=== PATIENT | female | born 1995 | race Two or more races ===

== ENCOUNTER 2024-10-21 05:53 | Emergency (ER) | payer OTHER ==
[~2024-10-21] VITALS: Ht 162.6 cm; Wt 86.9 kg
--- NOTE | 2024-10-21 07:02 | ED.PDOC ---
History of Present Illness HPI Comments 29-year-old female with PMHx Asthma presents with a chief complaint of flu-like symptoms. Patient states that she has been experiencing mainly a cough that is non-productive and nasal congestion. Patient does mention a history of asthma and states that she has been having to use her inhaler more frequently because of the congestion and feeling like she cannot breathe properly. Patient is sating 99% on room air. 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 Hx Family History Family History: Reviewed,noncontributory to illness Social History Smoker: Non-Smoker Alcohol: Denies ETOH Use Drugs: Denies Drug Use Lives In: Home Constitutional: denies: chills, diaphoresis, fatigue, fever, malaise, sweats, weakness, others EENTM: reports: nose congestion; denies: blurred vision, double vision, ear bleeding, ear discharge, ear drainage, ear pain, ear ringing, eye pain, eye redness, hearing loss, mouth pain, mouth swelling, nasal discharge, nose bleeding, nose pain, photophobia, tearing, throat pain, throat swelling, voice changes, others Respiratory: reports: cough; denies: hemoptysis, orthopnea, SOB at rest, shortness of breath, SOB with excertion, stridor, wheezing, others Cardiovascular: denies: chest pain, dizzy spells, diaphoresis, Dyspnea on exertion, edema, irregular heart beat, left arm pain, lightheadedness, palpitations, PND, syncope, others Gastrointestinal: denies: abdomen distended, abdominal pain, blood streaked bowels, constipated, diarrhea, dysphagia, difficulty swallowing, hematemesis, melena, nausea, poor appetite, poor fluid intake, rectal bleeding, rectal pain, vomiting, others Genitourinary: denies: abnormal vagina bleeding, burning, dyspareunia, dysuria, flank pain, frequency, hematuria, incontinence, pain, , vagina discharge, urgency, others Neurological: denies: dizziness, fainting, headache, left sided numbness, left sided weakness, numbness, paresthesia, pre-existing deficit, right sided numbness, right sided weakness, seizure, speech problems, tingling, tremors, weakness, others Musculoskeletal: denies: back pain, gout, joint pain, joint swelling, muscle pain, muscle stiffness, neck pain, others Integumetry: denies: bruises, change in color, change in hair/nails, dryness, laceration, lesions, lumps, rash, wounds, others Allergic/Immunocompromised: denies: Difficulty Healing, Frequent Infections, Hives, Itching, others Hematologic/Lymphatic: denies: anemia, blood clots, easy bleeding, easy bruising, swollen glands, others Endocrine: denies: excessive hunger, excessive sweating, excessive thirst, excessive urination, flushing, intolerance to cold, intolerance to heat, unexpl ained weight gain, unexplained weight loss, others Psychiatric: denies: anxiety, bipolar disorder, depression, hopeless, panic disorder, schizophrenia, sleepless, suicidal, others All Other Systems: Reviewed and Negative Physical Exam General Appearance: No Apparent Distress, Normal HEENT: Normal ENT Inspection, Pharynx Normal, TMs Normal Neck: Full Range of Motion, Non-Tender, Normal, Normal Inspection Respiratory: Chest Non-Tender, Lungs Clear, No Accessory Muscle Use, No Respiratory Distress, Normal Breath Sounds Cardiovascular: No Edema, No JVD, No Murmur, No Gallop, Normal Peripheral Pulses, Regular Rate/Rhythm Breast Exam: Deferred Gastrointestinal: No Organomegaly, Non Tender, No Pulsatile Mass, Normal Bowel Sounds, Soft Genitalia: Deferred Pelvic: Deferred Rectal: Deferred Extremities: No calf tenderness, Normal capillary refill, Normal inspection, Normal range of motion, Non-tender, No pedal edema Musculoskeletal : Apperance: Normal Neurologic: Alert, 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 Was a procedure done?: No Differential Dx Considerations may include: viral uri, bronchitis, pneumonia, asthma exacerbation X-Ray, Labs, Meds, VS Vital Signs Date Time Temp Pulse Resp B/P (MAP) Pulse Ox O2 Delivery O2 Flow Rate FiO2 10/21/24 07:19 94 18 97 Room Air 10/21/24 07:19 98.2 94 18 130/90 (103) 97 98.2 10/21/24 06:28 18 99 Room Air* 0 21 10/21/24 06:04 98.2 95 18 148/94 (112) 99 98.2 Time of 1ST Reevaluation: 06:51 Reevaluation 1ST: Unchanged Patient Education/Counseling: Diagnosis, Treatment, Prognosis, Need For Follow Up Family Education/Counseling: Diagnosis, Treatment, Prognosis, Need For Follow Up, No Family Present Additional Information Previous visit documents reviewed: None The following tests were ordered, and results were reviewed by me: Chest X-Ray I reviewed and agreed with the following test results read by other providers: Radiologist I discussed treatment and results with medical personnel and: Patient pt has viral uri, with mild asthma exacerbation. i will start her on prednisolone and she is to continue to use her inhaler. she is stable to follow up with her doctor Departure 1 Departure Time of Disposition: 08:48 Impression: Primary Impression: Asthma attack Qualified Codes: J45.21 - Mild intermittent asthma with (acute) exacerbation Additional Impression: Viral URI with cough Disposition: 01 HOME / SELF CARE / HOMELESS Condition: Good e-Prescriptions Prednisolone (Prednisolone) 15 Mg/5 Ml Gunnar 15 MG PO DAILY for 5 Days, #25 ML Prov: HOLLI MARS MD 10/21/24 Promethazine-Dm (Promethazine Dm 6.25-15 mg/5Ml) 1 Gunnar Gunnar 1 GUNNAR PO Q6HP PRN for 3 Days, #60 ML Prov: HOLLI MARS MD 10/21/24 Discharged With: Relative (Father) Critical Care Note Critical Care Time?: No Stability Stability form required: No Heart Score Heart Score: Heart Score Response (Comments) Value History N/A 0 EKG N/A 0 Age N/A 0 Risk Factors N/A 0 Troponin N/A 0 Total 0 I personally scribed for HOLLI MARS MD ([email or web address]) on 10/21/24 at 07:02. Electronically submitted by Dominic Lambert ([email or web address]). HOLLI MARS MD Oct 21, 2024 07:02
[2024-10-21 07:19] VITALS: BP 130/90; TEMP 98.2
--- NOTE | 2024-10-21 08:25 | DVH ---
XY CHEST PORTABLE, HISTORY: cough COMPARISON: None None TECHNICAL DATA: 1 view of the chest was obtained. FINDINGS: Lines and tubes: None Cardiomediastinal silhouette: normal Pulmonary vasculature: normal Lung expansion: normal Lung airspace: normal Lung interstitium: normal Pleura: normal Pneumothorax: no Bones: Unremarkable Other: no IMPRESSION: No acute intrathoracic abnormality.
[2024-10-21] MEDS ORDERED: PRED15SO33 PO (08:49)
[2024-10-21] MEDS ORDERED: PROM1SOL4 PO (08:49)
[2024-10-21 08:53] VITALS: PULSE 94; RESP 18; O2SAT 97
== END 2024-10-21 08:59 | disposition home or self-care (01) ==
LOC: ER 05:53
DX: J45.21 Mild intermittent asthma with (acute) exacerbation (principal); J06.9 Acute upper respiratory infection, unspecified; B97.89 Other viral agents as the cause of diseases classified elsewhere; Z88.0 Allergy status to penicillin
CPT/HCPCS: 71045